=== PATIENT | female | born 1955 | race Caucasian/White ===

== ENCOUNTER 2020-10-11 10:00 | Outpatient (CLI) | payer MEDICARE, SELFPAY ==
--- NOTE | 2020-10-11 10:15 | CT_ITS ---
WS: [id number] LDCT LUNG CANCER SCREENING TECHNIQUE: Noncontrast CT of the chest with coronal and sagittal reformatted images. CLINICAL INFORMATION: NICOTINE DEPENDENCE,CIGARETTES COMPARISON: None. DLP: 54.19 mGy.cm DIvol: 1.[address] scans at [facility] use at least one of these dose optimization techniques: automat ed exposure control; mA and/or kV adjustment per patient size (includes targeted exams where dose is matched to clinical indication); or iterative reconstruction. FINDINGS: No suspicious pulmonary ankle abnormalities. No acute pulmonary infiltrates. No focal pneum onia or pleural fluid. Exophytic right dorsal thyroid nodule measuring 1.7 x 1.3 cm. Normal caliber thoracic aorta. No media stinal or hilar lymphadenopathy. Calcified right hilar and subcarinal lymph nodes. No axillary lympha denopathy. Adrenal glands are normal. Normal GE junction. CT/CT lung screening [id number] IMPRESSION: LUNG-RADS: 2-Benign Appearance or Behavior FOLLOW UP: 12 Month: Continue annual screening with LDCT
== END 2020-10-11 10:01 | disposition home or self-care (01) ==
LOC: RAD 10:06
PROVIDERS: PCP Family Medicine; Visit Provider Family Medicine
DX: Z12.2 Encounter for screening for malignant neoplasm of respiratory organs (principal); F17.210 Nicotine dependence, cigarettes, uncomplicated
CPT/HCPCS: 71271

== ENCOUNTER 2020-11-21 09:48 | Outpatient (CLI) | payer MEDICARE, SELFPAY ==
--- NOTE | 2020-11-21 10:00 | MR_ITS ---
WS: [id number] MRI NECK WITH CONTRAST TECHNIQUE: Noncontrast axial T1, axial T2 FSE fat sat, coronal T2 fat sat, coronal T1, coronal T1 fat sat, sagittal T2 fat sat, plus contrast enhanced coronal, sagittal, and axial T1 fat sat images obta ined. CLINICAL INFORMATION: NEOPLASM OF UNCERTAIN BEHAVIOR OF THYROID GLAND COMPARISON: CT lung screening October 11, 2020 FINDINGS: Partially visualized T2 hyperintense enhancing right dorsal thyroid nodule not entirely included on t his examination. This measures approximately 1.3 x 1.1 cm and appears similar to the prior CT lung sc reening. This can be further evaluated with ultrasound if indicated. Parotid glands are normal. Normal submandibular glands. Normal posterior nasopharynx. No evidence of supraglottic or glottic mass. Normal vallecula and piriform sinuses. Vocal cords and vocal folds are normal in appearance. No evidence of vocal cord paralysis. Normal piriform sinuses. No evidence of supraglottic or glottic mass. No cervical lymphadenopathy. No evidence of metastatic d isease in the neck. Cervical canal is patent. Partially visualized moderate parenchymal volume loss intracranially. Cystic-appearing lesion in the right anterior temporal lobe likely cystic encephalomalacia or neuroepithelial cyst. This is incomple tely evaluated. Cystic T2 hyperintense lesion measures 11 mm. MR/MR orbit face neck wo/w* [id number] IMPRESSION: 1. No evidence of metastatic disease in the neck. No cervical lymphadenopathy. 2. No evidence of supraglottic or glottic mass. Normal vocal cords and vocal f olds. No evidence of vocal cord paralysis. 3. Partially visualized dorsal exophytic thyroid nodule measuring 1.3 x 1.1 cm appears unchanged since the lung screening CT. This can be further evaluated w [facility] ultrasound for better anatomic detail if indicated. 4. Partially visualized intracranial contents demonstrate moderate parenchymal volume loss with cystic appearing lesion in right anterior temporal lobe measu ring 11 mm with surrounding T2 signal abnormality. This can be further evaluate d with MRI head without and with gadolinium enhancement.
[2020-11-21] MEDS: gadobenate dimeglumine 20 mL vial IV (11:03)
== END 2020-11-21 09:49 | disposition home or self-care (01) ==
PROVIDERS: PCP Family Medicine; Visit Provider Specialist
DX: D44.0 Neoplasm of uncertain behavior of thyroid gland (principal); E04.1 Nontoxic single thyroid nodule
CPT/HCPCS: 70543; A9577

== ENCOUNTER 2021-11-13 08:43 | Outpatient (CLI) | payer MEDICARE, SELFPAY ==
--- NOTE | 2021-11-13 09:00 | FL_ITS ---
WS: [id number] FL barium swallow [id number] REASON FOR EXAM: DYSPHAGIA FLUOROSCOPY TIME: 2min [id number] # OF SPOT FILMS: Multiple Patient was examined in the upright and prone MCKEON and supine LPO position. Multiple swallows of bariu m were monitored fluoroscopically and multiple spot films taken. FINDINGS: There was moderate penetration of the contrast over the epiglottis without dina aspiration. Cervical esophagus was unremarkable with no osteophyte impingement or diverticulum. No intrinsic or extrinsic compression of the thoracic esophagus. There were intermittent breaks in th e primary peristaltic wave with minor tertiary contractions. No significant retention of barium. Small sliding hiatal hernia without significant Schatzki ring or stricture. Reflux was not elicited. FL/FL barium swallow [id number] IMPRESSION: Penetration of contrast over the epiglottis as above. This finding may warrant a formal modified barium swallow supervised by the speech therapy department. Mild esophageal dysmotility as above.
== END 2021-11-13 08:44 | disposition home or self-care (01) ==
PROVIDERS: PCP Family Medicine; Visit Provider Specialist
DX: R13.10 Dysphagia, unspecified (principal)
CPT/HCPCS: 74220

== ENCOUNTER 2021-11-21 16:17 | Outpatient (CLI) | payer MEDICARE, SELFPAY ==
[2021-11-21 17:08] LABS: Blood Urea Nitrogen 12 mg/dL (8-23); Glomerular Filtration Rate 99.7 mL/min (90-130)
== END 2021-11-21 16:18 | disposition home or self-care (01) ==
LOC: RAD 16:17
PROVIDERS: PCP Family Medicine; Visit Provider Specialist
DX: R13.10 Dysphagia, unspecified (principal)
CPT/HCPCS: 82565; 84520

== ENCOUNTER 2021-11-23 12:43 | Outpatient (CLI) | payer MEDICARE, SELFPAY ==
--- NOTE | 2021-11-23 12:59 | CT_ITS ---
WS: [id number] CT NECK TECHNIQUE: Contrast-enhanced CT of the neck with coronal and sagittal reformatted images. CLINICAL INFORMATION: DYSPHAGIA COMPARISON: MRI November 21, 2020 DLP: 226.[address] scans at [facility] use at least one of these dose optimization techniques: automated e xposure control; mA and/or kV adjustment per patient size (includes targeted exams where dose is matc hed to clinical indication); or iterative reconstruction. FINDINGS: Normal posterior nasopharynx. Normal parapharyngeal fat. Tongue base appears normal. No evidence of s upraglottic or glottic mass. Normal vallecula and piriform sinuses. Normal glottis. Normal subglottic airway. RIGHT posterior projecting RIGHT thyroid nodule measuring 1.2 x 1.2 x 2.1 cm AP by transvers e by craniocaudal. This appears stable compared to the prior MRI. This can be further evaluated with ultrasound. Normal parotid glands and submandibular glands. Paranasal sinuses and mastoid air cells well aerated. Previously described T2 hyperintense lesion in the RIGHT anterior temporal lobe not completely inclu ded on this examination. Recommend further evaluation with MRI without and with gadolinium enhancemen t for complete assessment. Mild cervical curve. No cervical lymphadenopathy. 4 CT/CT neck w con* [id number] IMPRESSION: 1. Posterior projecting RIGHT thyroid nodule measuring 1.2 x 1.2 x 2.1 cm appe ars stable compared to previous. This can be further evaluated with ultrasound for better anatomic detail. 2. No cervical lymphadenopathy. 3. Normal salivary glands. 4. Partially visualized lesion in the RIGHT anterior temporal lobe previously described on the prior MRI neck. This is incompletely evaluated and recommend f urther evaluation with MRI of the head without and with gadolinium enhancement to exclude neoplasm. 5. No evidence of supraglottic or glottic mass. 6. No other suspicious findings.
[2021-11-23] MEDS: iohexol 350 mg/mL 100 mL Btl IV (13:58)
== END 2021-11-23 12:44 | disposition home or self-care (01) ==
PROVIDERS: PCP Family Medicine; Visit Provider Specialist
DX: R13.10 Dysphagia, unspecified (principal); E04.1 Nontoxic single thyroid nodule
CPT/HCPCS: 70491

== ENCOUNTER 2021-12-29 07:51 | Outpatient (CLI) | payer MEDICARE, SELFPAY ==
--- NOTE | 2021-12-29 07:59 | FL_ITS ---
WS: [id number] Exam: FL barium swallow modifd [id number] Date/Time of Exam: 12/29/2021 8:15 AM Reason For Exam: Other dysphagia Fluoroscopy time: 2min [id number] minutes # of spot films: Modified barium swallow was performed in conjunction with the speech therapy department. Swallowing function at the level of oropharynx was normal. The patient experienced one episode of mil d penetration into the laryngeal inlet when ingesting thin liquid barium solutions. The patient jayme ated nectar consistency, pudding consistency and solid barium mixture foodstuffs without difficulty. The patient ingested a barium tablet without difficulty. No aspiration was identified. FL/FL barium swallow modifd [id number] IMPRESSION: 1. The patient experienced a single episode of mild penetration when ingesting thin liquid barium solutions. No other sign of penetration or aspiration. A separate report of the recommendations and findings will follow from the [facility] therapy service.
== END 2021-12-29 07:52 | disposition home or self-care (01) ==
LOC: RAD 07:52
PROVIDERS: PCP Family Medicine; Visit Provider Otolaryngology
DX: R09.89 Other specified symptoms and signs involving the circulatory and respiratory systems (principal); R13.19 Other dysphagia
CPT/HCPCS: 74230; 92611

== ENCOUNTER 2022-01-02 14:16 | Outpatient (CLI) | payer MEDICARE, SELFPAY ==
--- NOTE | 2022-01-02 14:22 | CT_ITS ---
WS: [id number] LDCT LUNG CANCER SCREENING HISTORY: HX OF TOBACCO USE/NICOTINE Dependence, cigarettes TECHNIQUE: Axial imaging performed from the apices to 1 cm below the costophrenic angles. Coronal and sagittal reformats are submitted with axial MIP series. All CT scans at [facility] use at least one of these dose optimization techniques: automated exposure control; mA and/or kV adjustment per patient size (includes targeted exams where dose is matched to clinical indication); or iterativ e reconstruction. DLP: 82.11 mGy.cm DIvol: Mean CTDIvol: 1.60 (mGy) COMPARISON: 10/11/2020 Diagnostic quality: Satisfactory Lung Nodules: 4 mm nodule surrounded by groundglass attenuation in the RIGHT upper lobe. Nodule has b ecome slightly more prominent as compared to 10/11/2020. No additional nodules are identified. No endo bronchial lesions. Lungs: Slight elevation RIGHT hemidiaphragm with compressive atelectasis at the lung bases. Heart: Normal size. Other findings: Small mediastinal and hilar lymph nodes. Mild atherosclerosis aorta. No change in the posterior inferior RIGHT thyroid nodule. Small hiatal hernia. No adrenal mass. CT/CT lung screening [id number] IMPRESSION: LUNG-RADS: 3-Probably Benign FOLLOW UP: 6 Month LDCT OTHER FINDINGS (S MODIFIER): None.
== END 2022-01-02 14:17 | disposition home or self-care (01) ==
LOC: RAD 14:17
PROVIDERS: PCP Family Medicine; Visit Provider Registered Nurse
DX: Z12.2 Encounter for screening for malignant neoplasm of respiratory organs (principal); F17.210 Nicotine dependence, cigarettes, uncomplicated; R05.3 Chronic cough
CPT/HCPCS: 71271

== ENCOUNTER 2022-01-17 07:42 | Outpatient (CLI) | payer MEDICARE, SELFPAY | END 2022-01-17 07:43 | disposition home or self-care (01) | LOC: RT 07:43 | PROVIDERS: PCP Family Medicine; Visit Provider Specialist | DX: R06.00 Dyspnea, unspecified (principal) | CPT/HCPCS: 94010; 94726; 94729 ==

== ENCOUNTER → 2022-01-22 09:38 | Outpatient (BNVA) | payer MEDICARE, SELFPAY | PROVIDERS: PCP Family Medicine; Visit Provider Internal Medicine Pulmonary Disease | DX: R91.1 Solitary pulmonary nodule (principal); J44.9 Chronic obstructive pulmonary disease, unspecified; R05.3 Chronic cough; Z71.6 Tobacco abuse counseling; R06.09 Other forms of dyspnea; F17.210 Nicotine dependence, cigarettes, uncomplicated | CPT/HCPCS: 99204 ==

== ENCOUNTER 2022-01-23 06:00 | Outpatient (CLI) | payer MEDICARE, SELFPAY | END 2022-01-23 23:00 | disposition home or self-care (01) | LOC: RAD 02-26 13:42 | PROVIDERS: PCP Family Medicine; Visit Provider Internal Medicine Pulmonary Disease | DX: J44.9 Chronic obstructive pulmonary disease, unspecified (principal); R06.02 Shortness of breath | CPT/HCPCS: 36415; 80048; 82785; 85025; 86003 ==

== ENCOUNTER → 2022-01-23 10:17 | Outpatient (BNVA) | payer MEDICARE, SELFPAY | PROVIDERS: PCP Family Medicine; Visit Provider Internal Medicine Cardiovascular Disease | DX: R00.1 Bradycardia, unspecified (principal) | CPT/HCPCS: 93005 ==

== ENCOUNTER 2022-06-26 13:20 | Outpatient (CLI) | payer MEDICARE, SELFPAY ==
--- NOTE | 2022-06-26 13:30 | CT_ITS ---
WS: [id number] CT CHEST WITHOUT INTRAVENOUS CONTRAST HISTORY: 6 month f/u lung nodule TECHNIQUE: Contiguous 5 mm axial imaging performed on the thorax. Coronal and sagittal reformats are submitted. All CT scans at [facility] use at least one of these dose optimization techniques: automated exposure control; mA and/or kV adjustment per patient size (includes targeted exams where dose is matched to clinical indication); or iterative reconstruction. CONTRAST: None DLP: 353.03 mGy.cm COMPARISON: 01/02/2022 and 10/11/2020 Lungs and central airway: Mild pulmonary hyperinflation. 4 mm nodule surrounded by groundglass is anam ntified in the RIGHT upper lobe with no interval change. No new mass or pulmonary nodule. No pneumoni a. Mild atelectasis due to elevation of the RIGHT hemidiaphragm. Small thin septation proximal RIGHT lower lobe bronchus. Pleura: Normal. No pleural effusion. Heart and pericardium: Normal size heart with no pericardial effusion. Mediastinum and sahil: No mediastinum or hilar adenopathy. Vessels: Mild atherosclerosis aorta. No pulmonary enlargement. No aneurysm. Chest wall and lower neck: No soft tissue masses. Upper abdomen: Small hiatal hernia. Atherosclerosis suprarenal aorta, mild. Diverticula splenic flexu re. Osseous structures: No destructive process. CT/CT chest wo con [id number] IMPRESSION: 1. No change 4 mm nodule surrounded by groundglass attenuation RIGHT upper lob e. No change since 01/02/2022. Probably no significant change since the study of 10/11/2020. Recommend follow-up chest CT in one year. 2. Atherosclerosis aorta. 3. Mild elevation RIGHT hemidiaphragm.
== END 2022-06-26 13:21 | disposition home or self-care (01) ==
PROVIDERS: PCP Family Medicine; Visit Provider Internal Medicine Pulmonary Disease
DX: R91.1 Solitary pulmonary nodule (principal)
CPT/HCPCS: 71250

== ENCOUNTER → 2022-07-19 08:28 | Outpatient (BNVA) | payer MEDICARE, SELFPAY | PROVIDERS: PCP Family Medicine; Visit Provider Internal Medicine Pulmonary Disease | DX: R91.1 Solitary pulmonary nodule (principal); J44.9 Chronic obstructive pulmonary disease, unspecified; R05.3 Chronic cough; Z71.6 Tobacco abuse counseling; F17.210 Nicotine dependence, cigarettes, uncomplicated | CPT/HCPCS: 99214 ==

== ENCOUNTER → 2023-04-18 09:15 | Outpatient (BNVA) | payer MEDICARE, SELFPAY | PROVIDERS: PCP Family Medicine; Visit Provider Internal Medicine Pulmonary Disease | DX: J43.2 Centrilobular emphysema (principal); R05.3 Chronic cough; R06.09 Other forms of dyspnea; Z71.6 Tobacco abuse counseling; R91.1 Solitary pulmonary nodule; F17.210 Nicotine dependence, cigarettes, uncomplicated | CPT/HCPCS: 99214 ==

== ENCOUNTER → 2023-06-28 15:17 | Outpatient (BNVA) | payer MEDICARE, SELFPAY | PROVIDERS: PCP Family Medicine; Visit Provider Specialist | DX: G62.89 Other specified polyneuropathies (principal); R20.0 Anesthesia of skin; R20.2 Paresthesia of skin | CPT/HCPCS: 95910 ==

== ENCOUNTER 2023-07-05 09:50 | Outpatient (CLI) | payer MEDICARE, SELFPAY ==
--- NOTE | 2023-07-05 10:15 | CT_ITS ---
WS: [id number] LDCT LUNG CANCER SCREENING TECHNIQUE: Noncontrast CT of the chest with coronal and sagittal reformatted images. CLINICAL INFORMATION: Cancer Screen COMPARISON: 2021 and 2022 DLP: 69.67 mGy.cm DIvol: Mean CTDIvol: 1.10 (mGy) All CT scans at [facility] use at least one of these dose optimization techniques: automat ed exposure control; mA and/or kV adjustment per patient size (includes targeted exams where dose is matched to clinical indication); or iterative reconstruction. FINDINGS: Stable 4 mm nodule RIGHT upper lobe. Small amount of surrounding hazy groundglass attenuati on is unchanged. Mild chronic emphysematous changes. Hazy atelectasis RIGHT lower lobe. Subsegmental atelectasis LEFT lower lobe. No other suspicious pulmonary parenchymal abnormalities. Chronic elevation RIGHT hemidiaphragm. Exophytic RIGHT lower pole thyroid nodule measuring 1.6 cm. Salazar rgical clips at the anterior thyroid bed. Aortic calcification. Calcified RIGHT hilar and subcarinal lymph nodes. No axillary lymphadenopathy. Adrenal glands are normal. Tiny esophageal hiatal hernia. IMPRESSION: CT/CT lung screening [id number] LUNG-RADS: 2-Benign Appearance or Behavior FOLLOW UP: 12 Month: Continue annual screening with LDCT
== END 2023-07-05 09:51 | disposition home or self-care (01) ==
LOC: RAD 09:51
PROVIDERS: PCP Family Medicine; Visit Provider Internal Medicine Pulmonary Disease
DX: Z12.2 Encounter for screening for malignant neoplasm of respiratory organs (principal); F17.210 Nicotine dependence, cigarettes, uncomplicated; R91.1 Solitary pulmonary nodule; J43.9 Emphysema, unspecified; J98.11 Atelectasis
CPT/HCPCS: 71271

== ENCOUNTER → 2023-08-19 08:43 | Outpatient (BNVA) | payer MEDICARE, SELFPAY | PROVIDERS: PCP Family Medicine; Visit Provider Internal Medicine Pulmonary Disease | DX: J44.9 Chronic obstructive pulmonary disease, unspecified (principal); J43.2 Centrilobular emphysema; R05.3 Chronic cough; R06.09 Other forms of dyspnea; Z71.6 Tobacco abuse counseling; R91.1 Solitary pulmonary nodule; R06.01 Orthopnea; F17.210 Nicotine dependence, cigarettes, uncomplicated | CPT/HCPCS: 99214 ==

== ENCOUNTER 2023-08-27 12:07 | Outpatient (CLI) | payer MEDICARE, SELFPAY ==
--- NOTE | 2023-08-27 12:30 | USCV_ITS ---
Quiana Laughlin Age: 68 Gender: F : 1955 Exam Date: 08/27/2023 12:20 Ordering Phys: Luigi Duffy MD Technologist: Exam [place] [facility] [place]: chest pain BP: 110 / 70 HR: 88 Rhythm: Sinus Technical Quality: Adequate MEASUREMENTS (Male / Female) Normal Values 2D ECHO LV Diastolic Diameter PLAX 3.9 cm 4.2 - 5.9 / 3.9 - 5.3 cm IVS Diastolic Thickness 1.2 cm 0.6 - 1.0 / 0.6 - 0.9 cm IVS Systolic Thickness 1.8 cm LVPW Diastolic Thickness 1.2 cm 0.6 - 1.0 / 0.6 - 0.9 cm LVPW Systolic Thickness 1.8 cm LVOT Diameter 2.0 cm LV Ejection Fraction 2D Teich 63.7 % LV Ejection Fraction MOD 2C 67.9 % LV Ejection Fraction 2C AL 67.6 % LA Diameter 2.9 cm RA Systolic Volume 4C AL 12.0 ml RA Systolic Volume 4C MOD 11.2 ml LA Sys Volume AL 16.4 cm cubed LA Sys Volume Index AL 8.7 cm cubed/m squared Aorta at Sinotubular Diameter 2.6 cm IVC Diameter 1.2 cm M-MODE LA Ao Ratio MM 0.9 AV Cusp Separation MM 1.9 cm DOPPLER AV Peak Velocity 125.0 cm/s LVOT Peak Velocity 103.0 cm/s AV Area Cont Eq vti 2.9 cm squared AV Area Cont Eq pk 2.6 cm squared MV Peak Velocity 117.0 cm/s MV Area PHT 4.3 cm squared Mitral E to A Ratio 0.6 TR Peak Velocity 138.0 cm/s TR Peak Gradient 7.6 mmHg TV Peak E Velocity 90.0 cm/s PV Peak Velocity 133.0 cm/s FINDINGS Left Ventricle Left ventricle is normal size. LV systolic function is normal with EF 55 to 60%. No regional wall motion abnormalities are seen. Mild to moderate left ventricular hypertrophy. Grade 1 diastolic dysfunction. Right Ventricle Normal size and function Right Atrium Normal in size with Left Atrium Normal in size Mitral Valve Structurally normal mitral valve. Mild mitral regurgitation. Aortic Valve Structurally normal aortic valve. No significant stenosis or regurgitation. Tricuspid Valve Mild tricuspid regurgitation. Insufficient TR jet to calculate RVSP. Pulmonic Valve Not well visualized Pericardium Normal Aorta Normal in size IVC Appears to be normal CONCLUSIONS LV systolic function is normal with EF of 55 to 60%. Mild to moderate left ventricular hypertrophy Grade 1 diastolic dysfunction. Mild mitral regurgitation Mild tricuspid regurgitation. No comparison studies are available. Porter Fu MD (Electronically Signed) Final Date: 01 Sep 2023 13:18 S
== END 2023-08-27 12:08 | disposition home or self-care (01) ==
LOC: RAD 12:07
PROVIDERS: PCP Family Medicine; Visit Provider Internal Medicine Pulmonary Disease
DX: R06.09 Other forms of dyspnea (principal); I34.0 Nonrheumatic mitral (valve) insufficiency; I07.1 Rheumatic tricuspid insufficiency
CPT/HCPCS: 93306

== ENCOUNTER 2023-08-29 09:42 | Outpatient (CLI) | payer MEDICARE, SELFPAY | END 2023-08-29 09:43 | disposition home or self-care (01) | PROVIDERS: PCP Family Medicine; Visit Provider Internal Medicine Pulmonary Disease | DX: R06.09 Other forms of dyspnea (principal) | CPT/HCPCS: 94010; 94726; 94729 ==

== ENCOUNTER 2023-08-30 09:16 | Outpatient (CLI) | payer MEDICARE, SELFPAY ==
[2023-08-30 09:33] VITALS: BMI 27.4
--- NOTE | 2023-08-30 09:38 | NMCV_ITS ---
NM kelsea perf SPECT r/s* [id number] Quiana Laughlin Age: 68 Gender: F : 1955 Exam Date: 08/30/2023 10:20 Ordering Phys: Luigi Duffy MD Technologist: MARIANGEL Means Exam Location: [facility] Indications: SHORTNESS OF BREATH STRESS TEST Please see separate stress test report in [facility] for full findings IMAGE PROTOCOL Rest/Stress 1 Lexiscan Day Radiopharmaceutical Dose (mCi) Administration Site Administered by Rest: Tc-99m 10.6 IV MARIANGEL Landaverde Sestamibi Stress:Tc-99m 32.7 IV MARIANGEL Landaverde Sestamibi Rest: 30-Aug-2023 60 Discovery 630 Stress: 30-Aug-2023 30 Discovery 630 0.4mg Lexiscan. Supine position only as patient was unable to lay prone. SPECT RESULTS Technical Quality: Excellent Raw Data Analysis: Normal Image Corrections: No attenuation or motion correction applied Summed Stress Score: 0 Summed Rest Score: 0 Summed Difference Score: 0 PERFUSION FINDINGS SPECT images demonstrate homogeneous tracer distribution throughout the myocardium. FUNCTIONAL RESULTS (calculated via Gated SPECT) Stress Image LV EF (%): 95 Stress EDV (mL):41 TID: 0.95 Stress ESV (mL):2 FUNCTIONAL FINDINGS: There is normal left ventricular systolic function. IMPRESSIONS 1. Normal myocardial perfusion imaging with no evidence of ischemia 2. LV systolic function is normal Porter Fu MD (Electronically Signed) Final Date: 30 Aug 2023 14:22 S
--- NOTE | 2023-08-30 09:38 | ECG_ITS ---
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 Interpretive Statements NAME OF STUDY: LEXISCAN SESTAMIBI STRESS TEST INDICATION: [Shortness of Breath on Exertion] Procedure: At the baseline, the blood pressure was 128/78 mmHg with a heart rate of 81 bpm. The electrocardiogram showed normal sinus rhythm, normal axis with normal ST and T's. The Lexiscan was infused over a period of 20 seconds. A total of 0.4 mg of Lexiscan was infused. The stress phase was continued for a total of 5 minutes. Heart rate was at the end of stress phase was 98 bpm and a blood pressure of 114/58 mmHg. The EKG at the peak infusion revealed normal sinus rhythm with no significant ST-T wave changes. Sestamibi was injected 20 seconds after the Lexiscan infusion. Blood pressure at the end of recovery phase was 125/65 mmHg with a heart rate of 92 bpm. Conclusion: 1. Normal EKG response to Lexiscan infusion 2. No Lexiscan induced chest pain or cardiac arrhythmia. 3. Normal blood pressure and heart rate response. 4. Sestamibi/sestamibi perfusion scan pending; see separate report. Electronically Signed On 09-17-2023 9:31:22 CDT by Porter Fu M.D. [email or web address]
[2023-08-30] MEDS: regadenoson 0.4 Mg/5 ml Syringe 0.400000000000000022 MG IVP (11:10)
[2023-08-30 11:22] VITALS: BP 136/84; PULSE 95
== END 2023-08-30 09:17 | disposition home or self-care (01) ==
LOC: CDL 09:16
PROVIDERS: PCP Family Medicine; Visit Provider Internal Medicine Pulmonary Disease
DX: R06.02 Shortness of breath (principal)
CPT/HCPCS: 36415; 78452; 93017; 96374; A9500; J2785

== ENCOUNTER 2023-10-03 10:29 | Outpatient (CLI) | payer MEDICARE, SELFPAY | END 2023-10-03 10:30 | disposition home or self-care (01) | LOC: RT 10:29 | PROVIDERS: PCP Family Medicine; Visit Provider Internal Medicine Pulmonary Disease | DX: J43.2 Centrilobular emphysema (principal); R05.3 Chronic cough; F17.210 Nicotine dependence, cigarettes, uncomplicated; R06.09 Other forms of dyspnea; Z71.6 Tobacco abuse counseling; R91.1 Solitary pulmonary nodule; R06.01 Orthopnea | CPT/HCPCS: 94618; 99214 ==

== ENCOUNTER 2024-07-28 08:37 | Outpatient (CLI) | payer MEDICARE, SELFPAY ==
--- NOTE | 2024-07-28 09:23 | CT_ITS ---
WS: [id number] CT chest wo con [id number] HISTORY: HISTORY OF TOBACCO USE TECHNIQUE: Axial imaging performed through the thorax. Coronal and sagittal reformats are submitted. All CT scans at [facility] use at least one of these dose optimization techniques: automated exposure control; mA and/or kV adjustment per patient size (includes targeted exams where dose is matched to clinical indication); or iterative reconstruction. CONTRAST: None DLP: 77.01 mGy.cm COMPARISON: 07/05/2023, 06/26/2022 Lungs and central airway: Pulmonary hyperexpansion. No change in 3 mm nodule towards the RIGHT apex. Small amount of adjacent groundglass attenuation is stable. No new or enlarging mass or nodule. No pneumonia. Mild elevation of the RIGHT hemidiaphragm with compressive atelectasis at the RIGHT lung base. Pleura: Normal. No pleural effusion. Heart and pericardium: Normal size heart with no pericardial effusion. Mediastinum and sahil: Small stable mediastinal lymph nodes. Vessels: Minimal atherosclerosis aorta. Normal size aorta and pulmonary artery. Chest wall and lower neck: Surgical clips are noted along the anterior lower RIGHT neck. Previously seen thyroid nodule is not as well visualized today. No chest wall abnormalities. Upper abdomen: Small hiatal hernia. Normal adrenal glands. Splenic granulomata. Nonobstructing calcification incompletely visualized upper pole LEFT kidney. Osseous structures: No destructive process.
--- NOTE | 2024-07-28 10:43 | CT_ITS ---
WS: [id number] CT chest wo con [id number] HISTORY: HISTORY OF TOBACCO USE TECHNIQUE: Axial imaging performed through the thorax. Coronal and sagittal reformats are submitted. All CT scans at [facility] use at least one of these dose optimization techniques: automated exposure control; mA and/or kV adjustment per patient size (includes targeted exams where dose is matched to clinical indication); or iterative reconstruction. CONTRAST: None DLP: 77.01 mGy.cm COMPARISON: 07/05/2023, 06/26/2022 Lungs and central airway: Pulmonary hyperexpansion. No change in 3 mm nodule towards the RIGHT apex. Small amount of adjacent groundglass attenuation is stable. No new or enlarging mass or nodule. No pneumonia. Mild elevation of the RIGHT hemidiaphragm with compressive atelectasis at the RIGHT lung base. Pleura: Normal. No pleural effusion. Heart and pericardium: Normal size heart with no pericardial effusion. Mediastinum and sahil: Small stable mediastinal lymph nodes. Vessels: Minimal atherosclerosis aorta. Normal size aorta and pulmonary artery. Chest wall and lower neck: Surgical clips are noted along the anterior lower RIGHT neck. Previously seen thyroid nodule is not as well visualized today. No chest wall abnormalities. Upper abdomen: Small hiatal hernia. Normal adrenal glands. Splenic granulomata. Nonobstructing calcification incompletely visualized upper pole LEFT kidney. Osseous structures: No destructive process. CT/CT lung screening [id number] IMPRESSION: 1. No change 3 mm pulmonary nodule at the RIGHT apex. No new or enlarging mass . 2. Stable elevation RIGHT hemidiaphragm with RIGHT basilar atelectasis. 3. Chronic emphysema. 4. Small hiatal hernia.
== END 2024-07-28 08:38 | disposition home or self-care (01) ==
PROVIDERS: PCP Family Medicine; Visit Provider Nurse Practitioner Family
DX: Z12.2 Encounter for screening for malignant neoplasm of respiratory organs (principal); F17.210 Nicotine dependence, cigarettes, uncomplicated; R91.8 Other nonspecific abnormal finding of lung field; J98.11 Atelectasis; R91.1 Solitary pulmonary nodule; R59.0 Localized enlarged lymph nodes; K44.9 Diaphragmatic hernia without obstruction or gangrene; D73.89 Other diseases of spleen; N28.89 Other specified disorders of kidney and ureter; R93.5 Abnormal findings on diagnostic imaging of other abdominal regions, including retroperitoneum; J43.8 Other emphysema
CPT/HCPCS: 71250; 71271